=== PATIENT | male | born 1990 | race African-American/Black ===

== ENCOUNTER 2018-12-26 14:40 | Emergency (ER) | payer OTHER, BC ==
[2018-12-26 14:47] VITALS: BMI 28.7
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
[2018-12-26 17:18] VITALS: BP 132/67; PULSE 68; TEMP 98.2
== END 2018-12-26 17:27 | disposition home or self-care (01) ==
LOC: JER 14:40
DX: S53.402A Unspecified sprain of left elbow, initial encounter (principal); M25.562 Pain in left knee; M79.672 Pain in left foot; V23.4XXA Motorcycle driver injured in collision with car, pick-up truck or van in traffic accident, initial encounter; Y92.414 Local residential or business street as the place of occurrence of the external cause; Y93.89 Activity, other specified; Y99.8 Other external cause status
CPT/HCPCS: 71045-TC-FY; 72170-TC-FY; 73060-TC-LT-FY; 73070-TC-LT-FY; 73090-TC-LT-FY; 76604; 76705-TC; 93308; 99282-25